=== PATIENT | male | born 1945 | race Caucasian/White ===

== ENCOUNTER 2023-06-09 16:17 | Emergency (ER) | payer MEDICARE, OTHER ==
[2023-06-09 17:24] LABS: Bacteria/HPF None Seen HPF (None Seen); Bilirubin Negative (Negative); Blood, Urine Negative (Negative); CAUTI Indications for Culture Pelvic or flank pain; Clarity Clear (Clear); Glucose, Urine (Dipstick) Normal (Negative); Ketone, Urine Negative (Negative); Leukocyte Negative Leu/uL (Negative); Nitrite Negative (Negative); Protein, Urine (Dipstick) Negative (Neg-Trace); RBC/HPF 0-3 HPF (0-3); Specific Gravity, Urine 1.021 (1.002-1.036); Squamous Epithelial 0-3 HPF (0-3); Urobilinogen Normal mg/dL (Less than 2); WBC/HPF 0-3 HPF (0-3)
[2023-06-09 17:27] LABS: Urine Culture Reflex No No
[2023-06-09] MEDS ORDERED: Acetaminophen 500 MG TAB ONE (17:40)
== END 2023-06-09 19:44 | disposition home or self-care (01) ==
LOC: ERS 16:17
DX: N44.2 Benign cyst of testis (principal); F17.220 Nicotine dependence, chewing tobacco, uncomplicated
CPT/HCPCS: 76870; 81001; 93976

== ENCOUNTER 2024-04-15 19:50 | Emergency (ER) | payer MEDICARE ==
[2024-04-15] MEDS ORDERED: Rocuronium Bromide 10 MG/ML (10ML VIAL) ONE (19:55)
[2024-04-15] MEDS ORDERED: Atropine Sulfate 1 mg/10 ml Syringe ONE (19:55)
[2024-04-15] MEDS ORDERED: Etomidate 40 MG (20 mL) VIAL ONE (19:55)
[2024-04-15] MEDS ORDERED: EPINEPHrine 1 MG/10 ML Abboject SYRINGE ONE (19:55)
[2024-04-15] MEDS ORDERED: Sodium Bicarb 50 MEQ/50 ML Abboject 8.4% SYRINGE ONE ×4 (19:55→21:51)
[2024-04-15] MEDS ORDERED: NOREPINEPHRINE 8 MG/250 ML-D5W 250 ML ONE (19:56)
[2024-04-15] MEDS ORDERED: EPINEPHrine 1 MG/ML VIAL ONE (20:05)
[2024-04-15] MEDS ORDERED: Magnesium 2 GM/50 ML BAG (IN WATER) ONE (20:09)
[2024-04-15 20:14] LABS: #Basophils 0.05 10x3/uL (0.0-0.2); %Basophils 0.3 % (0.0-1.0); %Eosinophils 0.9 % (0.0-10.0); %Lymphocytes 36.2 % (21.0-51.0); %Monocytes 8.9 % (0.0-10.0); %Neutrophils 52.8 % (42.0-75.0); Hematocrit 43.6 % (42.0-52.0); Hemoglobin 13.6 g/dL (14.0-18.0); Mean Corpuscular HGB CONC 31.2 g/dL (32.0-36.0); Mean Corpuscular Hemoglobin 29.2 pg (27.0-31.0); Mean Corpuscular Volume 93.6 fL (78.0-98.0); Mean Platelet Volume 9.8 fL (7.4-10.4); Platelet Count 170 10x3/uL (130-400); RBC Distribution Width 13.6 % (11.5-14.5); Red Blood Cell (RBC) Count 4.66 mill/uL (4.70-6.10)
[2024-04-15 20:30] LABS: ALT (SGPT) 24 U/L (8-55); AST (SGOT) 18 U/L (5-34); Albumin 3.1 g/dL (3.4-4.8); Alkaline Phosphatase 82 U/L (40-110); Anion Gap 18 mmol/L (10-20); BUN (Urea Nitrogen) 23 mg/dL (8.4-25.7); Bilirubin, Total 0.6 mg/dL (0.2-1.2); Calc. Creatinine Clearance 0 mL/min (70-130); Calcium 8.7 mg/dL (7.8-10.44); Carbon Dioxide 16 mmol/L (23-31); Chloride 107 mmol/L (98-107); Estimated GFR 45; Glucose 254 mg/dL (83-110); Lipase 26 U/L (8-78); Magnesium 2.1 mg/dL (1.6-2.6); Potassium 4.4 mmol/L (3.5-5.1); Protein, Total 6.1 g/dL (5.8-8.1); Sodium 137 mmol/L (136-145)
[2024-04-15 20:31] LABS: INR-International Normal Ratio 1.2; PTT 29.9 sec (22.9-36.1); Prothrombin Time 15.6 sec (12.0-14.7)
[2024-04-15 20:35] LABS: Critical Call Chem Troponin I NUR.JR24@2035; Troponin I 0.426 ng/mL (< 0.028)
[2024-04-15] MEDS ORDERED: DOBUTamine 500 mg/250 ml 250 ML ONE ×2 (20:36→20:37)
[2024-04-15 20:49] LABS: Actual Bicarbonate (HCO3a) 17.9 mEq/L (22-28); Analyzer IN Cardio ER; Base Excess (BEa) -14.7 mEq/L (-2.0 to +3.0); Calcium, Ionized (arterial) 1.09 mmol/L (1.12-1.30); Carboxyhemoglobin (COHb) 0.3 gm% (0.0-3.0); Hematocrit-ABG 40 % (42.0-52.0); Hemoglobin (Hb) 13.5 g/dL (14.0-18.0); O2 Tension (PaO2), arterial 110.9 mmHg (> 60.0)
[2024-04-15 20:50] LABS: pH, Arterial 6.985 (7.35-7.45)
[2024-04-15 20:51] LABS: ALV-art Gradient 506.225 mmHg (0-20); CO2 Tension 76.7 mmHg (35.0-45.0); Puncture Site RFA
[2024-04-15] MEDS ORDERED: Heparin 25,000 units/D5W 500 ML ONE (20:53)
[2024-04-15] MEDS ORDERED: Vasopressin 20 UNITS/ML VIAL ONE (20:56)
[2024-04-15] MEDS ORDERED: Hydrocortisone Sod Succ/PF 100 mg/2 ml Vial ONE (20:59)
[2024-04-15] MEDS ORDERED: SODIUM BICARBONATE IV SCH (21:00)
[2024-04-15] MEDS ORDERED: DEXTROSE 5% IV SCH (21:00)
[2024-04-15] MEDS ORDERED: ALTEPLASE 50 MG/50 ML VIAL ONE ×2 (21:12→21:42)
[2024-04-15] MEDS ORDERED: Phenylephrine 40 MG, Admixture Fee 1 EACH in Sodium Chloride 0.9% 250 ML 250 ML IVPB SCH (22:00)
[2024-04-15] MEDS ORDERED: Phenylephrine 40 MG/NS 250 ML 40 MG in Premix 1 BAG IVPB SCH (22:00)
[2024-04-15 22:16] LABS: Actual Bicarbonate (HCO3v) 26.5 mEq/L (22-28); Analyzer IN Cardio ER; Base Excess -8.3 mEq/L (-2.0 to +3.0); Calcium, Ionized (venous) 0.98 mmol/L (1.16-1.32); Chloride (VBG) 98 mmol/L (98-106); Hematocrit-VBG 41 % (42.0-52.0); Hemoglobin (Hb) 14.1 g/dL (12.6-17.4); Potassium (VBG) 3.27 mmol/L (3.70-5.30); Sodium 147 mmol/L (133-146)
[2024-04-15 22:19] LABS: pH (venous) 6.967 (7.32-7.43)
[2024-04-15] MEDS ORDERED: Acetaminophen 325 MG TAB PO PRN (22:39)
[2024-04-15] MEDS ORDERED: Ondansetron PF 4 MG/2 ML Vial IVP PRN (22:39)
[2024-04-15 23:14] LABS: Lactic Acid 13.1 mmol/L (0.5-2.2)
== END 2024-04-15 22:58 | disposition expired ==
LOC: ERS 19:50
DX: I26.92 Saddle embolus of pulmonary artery without acute cor pulmonale (principal); I46.9 Cardiac arrest, cause unspecified; R57.8 Other shock; E87.20 Acidosis, unspecified
CPT/HCPCS: 36600; 71045; 71275; 74177; 80053; 82805 ×2; 82962; 83605; 83690; 83735; 83880; 84484; 85025; 85610; 85730; 87040; 94002; J0171; J1250; J1644; J1720; J2997; J3475; J7070; 31500; 32551; 36415; 36416; 36556; 92950; 93005; 96365; 96366; 96368; 96375; J0461; J2371; J7050